=== PATIENT | male | born 1980 | race Caucasian/White ===

== ENCOUNTER 2018-07-06 21:02 | Emergency (ER) | payer BC ==
[2018-07-06 22:03] LABS: ABSOLUTE EOSINOPHILS # (AUTO) 0.1 10^3/uL (0.0-0.6); ABSOLUTE LYMPHOCYTES (AUTO) 2.5 10^3/uL (0.5-4.7); ABSOLUTE MONOCYTES (AUTO) 0.3 10^3/uL (0.1-1.4); ABSOLUTE NEUT (AUTO) 5.7 10^3/uL (1.7-8.2); BASOPHILS % (AUTO) 0.5 % (0-2); EOSINOPHILS % (AUTO) 0.8 % (0-6); HEMATOCRIT 38.5 % (37.9-51.0); HEMOGLOBIN 13.2 g/dL (13.5-17.0); LYMPHOCYTES % (AUTO) 29.4 % (13-45); MEAN CORPUSCULAR HGB CONC 34.3 g/dL (32.0-36.0); MEAN CORPUSCULAR VOLUME 87 fl (80-97); MONOCYTES % (AUTO) 3.8 % (3-13); PLATELET COUNT 276 10^3/uL (150-450); RED CELL DISTRIBUTION WIDTH 14.1 % (11.5-14.0); SEGMENTED NEUTROPHILS % (AUTO) 65.5 % (42-78); TOTAL CELLS COUNTED % (AUTO) 100 %; WHITE BLOOD COUNT 8.6 10^3/uL (4.0-10.5)
[2018-07-06 22:08] LABS: APPEARANCE,URINE CLEAR; BILIRUBIN,URINE NEGATIVE (NEGATIVE); COLOR,URINE STRAW; GLUCOSE, URINE NEGATIVE (NEGATIVE); KETONES,URINE NEGATIVE (NEGATIVE); LEUKOCYTE ESTERASE,URINE NEGATIVE (NEGATIVE); NITRITE,URINE NEGATIVE (NEGATIVE); PROTEIN,URINE NEGATIVE (NEGATIVE); URINE SPECIFIC GRAVITY 1.009; UROBILINOGEN,URINE NEGATIVE mg/dL (<2.0)
[2018-07-06 22:12] LABS: ACETAMINOPHEN < 10 ug/mL (10-30); ALANINE AMINOTRANSFERASE 42 U/L (21-72); ALBUMIN 3.8 g/dL (3.5-5.0); ALCOHOL 112 mg/dL (NONE DETECTED); ALKALINE PHOSPHATASE 93 U/L (38-126); ANION GAP 13 (5-19); ASPARTATE AMINO TRANSFERASE 28 U/L (17-59); BILIRUBIN,DIRECT 0.4 mg/dL (0.0-0.4); BILIRUBIN,TOTAL 0.4 mg/dL (0.2-1.3); BLOOD UREA NITROGEN 13 mg/dL (7-20); CALCIUM 9.4 mg/dL (8.4-10.2); CARBON DIOXIDE 23 mmol/L (22-30); CHLORIDE 107 mmol/L (98-107); GLUCOSE 92 mg/dL (75-110); POTASSIUM 3.6 mmol/L (3.6-5.0); SODIUM 142.5 mmol/L (137-145); TOTAL PROTEIN 6.8 g/dL (6.3-8.2)
[2018-07-06 22:13] LABS: SALICYLATE < 1.0 mg/dL (2.0-20.0)
[2018-07-06 22:21] LABS: URINE AMPHETAMINES SCREEN NEGATIVE; URINE BARBITURATES SCREEN NEGATIVE; URINE BENZODIAZEPINES SCREEN NEGATIVE; URINE COCAINE SCREEN NEGATIVE; URINE MARIJUANA (THC) SCREEN UNCONFIRMED POSITIVE; URINE METHADONE SCREEN NEGATIVE; URINE PHENCYCLIDINE SCREEN NEGATIVE
[2018-07-06] MEDS ORDERED: IBUPROFEN 600 MG TABLET PO ONE (23:00)
--- NOTE | 2018-07-06 23:00 | ER Document Report ---
ED General - General Chief Complaint: Psych Problem Stated Complaint: IVC WITH PAPERS Time Seen by Provider: 07/06/18 22:05 Notes: Patient is a 40-year-old male that presents to the emergency department for chief complaint of back pain, and came by IVC paperwork. Patient states that "someone filled out paperwork, because they felt I needed my checkup." Patient at this time denies any suicidal or homicidal ideations. According to his IVC paperwork, he apparently was argumentative, and combative at times and aggressive behavior, that was concerning to family members. Patient denies any of this at this time. He states he was recently in the hospital about a week ago, and reports being compliant with his medications. He denies any delusions, hallucinations, visual or auditory. He is complaining of low back pain, which she states he injured it a few weeks ago fishing, describes as a low back aching, denies any radiation to the limbs. Denies any numbness, weakness or tingling, denies any saddle paresthesias or anesthesias. Denies any loss of bowel or bladder function or urinary retention. Past Medical History: Anxiety, Crohn's disease Past Surgical History: Surgery for Crohn's Social History: Admits to social alcohol use, admits to smoking cigarettes admits to marijuana use. Family History: Reviewed and noncontributory for presenting illness Allergies: Reviewed, see documented allergy list. REVIEW OF SYSTEMS: Other than noted above, the 12 point review of systems was reviewed with the patient and were negative, all pertinent findings are included in the HPI. PHYSICAL EXAMINATION: Vital signs reviewed, nursing noted reviewed. GENERAL: Well-appearing, well-nourished and in no acute distress. HEAD: Atraumatic, normocephalic. EYES: Eyes appear normal, extraocular movements intact, sclera anicteric, conjun ctiva are normal. ENT: nares patent, oropharynx clear without exudates. Moist mucous membranes. NECK: Normal range of motion, supple without lymphadenopathy LUNGS: Breath sounds clear to auscultation bilaterally and equal. No wheezes rales or rhonchi. HEART: Heart rate tachycardic, regular rhythm. ABDOMEN: Soft, nontender, normoactive bowel sounds. No rebound, guarding, or rigidity. No masses appreciated. EXTREMITIES: Nontender, good range of motion, no pitting or edema. Back: Mild paraspinal tenderness on the left side compared to the right. No midline tenderness step-off or deformity. NEUROLOGICAL: No focal neurological deficits. Moves all extremities spontaneously Motor and sensory grossly intact on exam. PSYCH: Normal mood, normal affect. SKIN: Warm, Dry, normal turgor, no rashes or lesions noted on exposed skin TRAVEL OUTSIDE OF THE [place] IN LAST 30 DAYS: No - Related Data Allergies/Adverse Reactions: No Known Allergies Allergy (Verified 06/27/18 09:16) Past Medical History - Social History Smoking Status: Current Every Day Smoker Family History: Reviewed & Not Pertinent Renal/ Medical History: Denies: Hx Peritoneal Dialysis GI Medical History: Reports: Hx Crohn's Disease Psychiatric Medical History: Reports: Hx Bipolar Disorder, Hx Schizophrenia Past Surgical History: Reports: Hx Abdominal Surgery - Immunizations Hx Diphtheria, Pertussis, Tetanus Vaccination: No Physical Exam - Vital signs Vitals: Temp Pulse Resp BP Pulse Ox 98.2 F 128 H 16 137/82 H 98 07/06/18 21:24 07/06/18 21:24 07/06/18 21:24 07/06/18 21:24 07/06/18 21:24 Course - Re-evaluation Re-evalutation: Patient seen and examined, vital signs reviewed. Medical screening testing was ordered including bloodwork, EKG, and toxicology. Results of testing were reviewed. Testing demonstrated positive EtOH, alcohol level 112, otherwise unremarkable workup, tox positive for marijuana. Patient has been stable from a hemodynamic standpoint. At this point I feel that the patient is medically cleared and can be further evaluated from a psychiatric standpoint for final disposition from the emergency department. Patient updated on plan of care. Laboratory 07/06/18 07/06/18 07/06/18 21:33 21:33 21:33 WBC 8.6 RBC 4.40 Hgb 13.2 L Hct 38.5 MCV 87 MCH 30.0 MCHC 34.3 RDW 14.1 H Plt Count 276 Seg Neutrophils % 65.5 Lymphocytes % 29.4 Monocytes % 3.8 Eosinophils % 0.8 Basophils % 0.5 Absolute Neutrophils 5.7 Absolute Lymphocytes 2.5 Absolute Monocytes 0.3 Absolute Eosinophils 0.1 Absolute Basophils 0.0 Sodium 142.5 Potassium 3.6 Chloride 107 Carbon Dioxide 23 Anion Gap 13 BUN 13 Creatinine 0.95 Est GFR ( Amer) > 60 Est GFR (Non-Af Amer) > 60 Glucose 92 Calcium 9.4 Total Bilirubin 0.4 Direct Bilirubin 0.4 Neonat Total Bilirubin Not Reportable Neonat Direct Bilirubin Not Reportable Neonat Indirect Bili Not Reportable AST 28 ALT 42 Alkaline Phosphatase 93 Total Protein 6.8 Albumin 3.8 Urine Color STRAW Urine Appearance CLEAR Urine pH 6.0 Ur Specific [place] 1.009 Urine Protein NEGATIVE Urine Glucose (UA) NEGATIVE Urine Ketones NEGATIVE Urine Blood NEGATIVE Urine Nitrite NEGATIVE Urine Bilirubin NEGATIVE Urine Urobilinogen NEGATIVE Ur Leukocyte Esterase NEGATIVE Urine WBC (Auto) 0 U Hyaline Cast (Auto) 2 Squamous Epi Cells Auto <1 Urine Mucus (Auto) OCC Urine Ascorbic Acid NEGATIVE Salicylates < 1.0 L Urine Opiates Screen Urine Methadone Screen Acetaminophen < 10 L Ur Barbiturates Screen Ur Phencyclidine Scrn Ur Amphetamines Screen U Benzodiazepines Scrn Urine Cocaine Screen U Marijuana (THC) Screen Serum Alcohol 112 07/06/18 21:33 WBC RBC Hgb Hct MCV MCH MCHC RDW Plt Count Seg Neutrophils % Lymphocytes % Monocytes % Eosinophils % Basophils % Absolute Neutrophils Absolute Lymphocytes Absolute Monocytes Absolute Eosinophils Absolute Basophils Sodium Potassium Chloride Carbon Dioxide Anion Gap BUN Creatinine Est GFR ( Amer) Est GFR (Non-Af Amer) Glucose Calcium Total Bilirubin Direct Bilirubin Neonat Total Bilirubin Neonat Direct Bilirubin Neonat Indirect Bili AST ALT Alkaline Phosphatase Total Protein Albumin Urine Color Urine Appearance Urine pH Ur Specific [place] Urine Protein Urine Glucose (UA) Urine Ketones Urine Blood Urine Nitrite Urine Bilirubin Urine Urobilinogen Ur Leukocyte Esterase Urine WBC (Auto) U Hyaline Cast (Auto) Squamous Epi Cells Auto Urine Mucus (Auto) Urine Ascorbic Acid Salicylates Urine Opiates Screen NEGATIVE Urine Methadone Screen NEGATIVE Acetaminophen Ur Barbiturates Screen NEGATIVE Ur Phencyclidine Scrn NEGATIVE Ur Amphetamines Screen NEGATIVE U Benzodiazepines Scrn NEGATIVE Urine Cocaine Screen NEGATIVE U Marijuana (THC) Screen UNCONFIRMED POSITIVE Serum Alcohol - Vital Signs Vital signs: Temp Pulse Resp BP Pulse Ox 98.2 F 128 H 16 137/82 H 98 07/06/18 21:24 07/06/18 21:24 07/06/18 21:24 07/06/18 21:24 07/06/18 21:24 - Laboratory Result Diagrams: 07/06/18 21:33 07/06/18 21:33 Laboratory results interpreted by me: 07/06/18 07/06/18 21:33 21:33 Hgb 13.2 L RDW 14.1 H Salicylates < 1.0 L Acetaminophen < 10 L - EKG Interpretation by Me Additional EKG results interpreted by me: EKG demonstrates sinus tachycardia with a ventricular rate of 115 bpm, normal axis, QTC 487 ms, no evidence of acute ischemia in this EKG, no prior for comparison at this time. Discharge - Discharge Clinical Impression: Anxiety Back pain Qualifiers: Back pain location: low back pain Chronicity: unspecified Back pain laterality: left Sciatica presence: without sciatica Qualified Code(s): M54.5 - Low back pain Alcohol intoxication Qualifiers: Complication of substance-induced condition: uncomplicated Qualified Code(s): F10.920 - Alcohol use, unspecified with intoxication, uncomplicated Condition: Stable Disposition: PSYCH HOSP/UNIT
[2018-07-07] MEDS ORDERED: IBUPROFEN 600 MG TABLET PO ONE (06:14)
--- NOTE | 2018-07-07 07:23 | EKG REPORT ---
SEVERITY:- BORDERLINE ECG - SINUS TACHYCARDIA BORDERLINE T ABNORMALITIES, INFERIOR LEADS BORDERLINE PROLONGED QT INTERVAL : Confirmed by: Ritchie Lowry MD 07-Jul-2018 07:22:47
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
[2018-07-07 14:01] VITALS: BP 152/88
== END 2018-07-07 14:09 ==
LOC: ER 21:02
DX: F41.9 Anxiety disorder, unspecified (principal); M54.5 Low back pain; F10.920 Alcohol use, unspecified with intoxication, uncomplicated; Y90.5 Blood alcohol level of 100-119 mg/100 ml; K50.90 Crohn's disease, unspecified, without complications; F17.210 Nicotine dependence, cigarettes, uncomplicated
CPT/HCPCS: 36415; 80053; 80307; 81001; 85025; 93005; 93010; 99285

== ENCOUNTER 2018-08-01 16:07 | Emergency (ER) | payer BC ==
[2018-08-01] MEDS ORDERED: LORAZEPAM INJ 2 MG/1 ML VIAL IM ONE (16:15)
[2018-08-01] MEDS ORDERED: DIPHENHYDRAMINE HCL 50 MG/ML VIAL IM ONE (16:15)
[2018-08-01] MEDS ORDERED: HALOPERIDOL LACTATE INJ 5 MG/1 ML VIAL IM ONE (16:15)
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
[2018-08-01 16:48] LABS: ABSOLUTE LYMPHOCYTES (AUTO) 0.9 10^3/uL (0.5-4.7); ABSOLUTE MONOCYTES (AUTO) 0.2 10^3/uL (0.1-1.4); ABSOLUTE NEUT (AUTO) 7.8 10^3/uL (1.7-8.2); BASOPHILS % (AUTO) 0.2 % (0-2); HEMATOCRIT 38.8 % (37.9-51.0); HEMOGLOBIN 12.9 g/dL (13.5-17.0); LYMPHOCYTES % (AUTO) 10.3 % (13-45); MEAN CORPUSCULAR HEMOGLOBIN 29.4 pg (27.0-33.4); MEAN CORPUSCULAR HGB CONC 33.2 g/dL (32.0-36.0); MEAN CORPUSCULAR VOLUME 89 fl (80-97); MONOCYTES % (AUTO) 2.7 % (3-13); PLATELET COUNT 259 10^3/uL (150-450); RED BLOOD COUNT 4.38 10^6/uL (4.35-5.55); RED CELL DISTRIBUTION WIDTH 14.6 % (11.5-14.0); SEGMENTED NEUTROPHILS % (AUTO) 86.8 % (42-78); TOTAL CELLS COUNTED % (AUTO) 100 %; WHITE BLOOD COUNT 8.9 10^3/uL (4.0-10.5)
[2018-08-01 17:05] LABS: ALANINE AMINOTRANSFERASE 31 U/L (21-72); ALBUMIN 4.2 g/dL (3.5-5.0); ALKALINE PHOSPHATASE 105 U/L (38-126); ANION GAP 11 (5-19); ASPARTATE AMINO TRANSFERASE 24 U/L (17-59); BILIRUBIN,DIRECT 0.2 mg/dL (0.0-0.4); BILIRUBIN,TOTAL 0.5 mg/dL (0.2-1.3); BLOOD UREA NITROGEN 20 mg/dL (7-20); CALCIUM 9.6 mg/dL (8.4-10.2); CARBON DIOXIDE 27 mmol/L (22-30); CHLORIDE 107 mmol/L (98-107); GLUCOSE 113 mg/dL (75-110); POTASSIUM 4.1 mmol/L (3.6-5.0); SODIUM 144.7 mmol/L (137-145); TOTAL PROTEIN 7.3 g/dL (6.3-8.2)
[2018-08-01 17:08] LABS: ACETAMINOPHEN < 10 ug/mL (10-30); ALCOHOL < 10 mg/dL (NONE DETECTED); SALICYLATE < 1.0 mg/dL (2.0-20.0)
[2018-08-01 17:09] LABS: APPEARANCE,URINE SLIGHTLY-CLOUDY; BILIRUBIN,URINE NEGATIVE (NEGATIVE); GLUCOSE, URINE NEGATIVE (NEGATIVE); KETONES,URINE NEGATIVE (NEGATIVE); LEUKOCYTE ESTERASE,URINE NEGATIVE (NEGATIVE); NITRITE,URINE NEGATIVE (NEGATIVE); PROTEIN,URINE NEGATIVE (NEGATIVE); URINE SPECIFIC GRAVITY 1.028; UROBILINOGEN,URINE NEGATIVE mg/dL (<2.0)
[2018-08-01 17:10] LABS: COLOR,URINE YELLOW
[2018-08-01 17:26] LABS: URINE AMPHETAMINES SCREEN NEGATIVE; URINE BARBITURATES SCREEN NEGATIVE; URINE BENZODIAZEPINES SCREEN NEGATIVE; URINE COCAINE SCREEN NEGATIVE; URINE MARIJUANA (THC) SCREEN UNCONFIRMED POSITIVE; URINE METHADONE SCREEN NEGATIVE; URINE PHENCYCLIDINE SCREEN NEGATIVE
--- NOTE | 2018-08-02 08:45 | EKG REPORT ---
SEVERITY:- ABNORMAL ECG - SINUS RHYTHM BORDERLINE T ABNORMALITIES, INFERIOR LEADS PROLONGED QT INTERVAL : Confirmed by: Ritchie Lowry MD 02-Aug-2018 08:44:12
--- NOTE | 2018-08-02 10:16 | ER Document Report ---
Doctor's Note Notes: 08/02/18 10:15 Rounds: Chart reviewed and patient interviewed. Patient is very calm and cooperative and pleasant this morning. He does seem to be a bit hyper. 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 Patient denies any suicidal intent or homicidal ideation. Was brought into the emergency department last night yelling and screaming and uncontrollable. He received an injection of Haldol 5 mg, Benadryl 50 mg, Ativan 2 mg, all I am. Apparently slept well and this morning is much calmer. Patient appears to be medically stable for transfer or discharge. Jamie Jane MD
[2018-08-02] MEDS ORDERED: OLANZAPINE 5 MG TABLET PO ONE (10:28)
[2018-08-02] MEDS: BENZTROPINE MESYLATE 1 MG TABLET PO SCH (10:42)
[2018-08-02] MEDS: OLANZAPINE 5 MG TABLET PO SCH (17:12)
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
--- NOTE | 2018-08-03 09:20 | ER Document Report ---
Doctor's Note Notes: 08/03/18 09:19 Rounds: Chart reviewed and patient interviewed. Patient being evaluated and treated for an acute psychosis, bipolar type. Seems to be doing much better and says he feels much better. Has been able to shower now feels better. Patient has a very large pile of papers that he has been handwriting notes and to keep track of his stay in our department. I recall this patient previously doing the same, writing profuse and written notes. Patient is currently on Zyprexa. No new labs to review. Previous labs unremarkable except for positive marijuana. Vital signs have been normal this morning. Patient appears to be medically stable for transfer or discharge. Current plan is for placement of the patient. Jamie Jane MD
[2018-08-03] MEDS: BENZTROPINE MESYLATE 1 MG TABLET PO SCH (10:42)
[2018-08-03] MEDS: OLANZAPINE 5 MG TABLET PO SCH ×2 (10:42→17:02)
[2018-08-04 03:29] VITALS: BP 146/100
== END 2018-08-04 03:10 ==
LOC: ER 16:07
DX: F23 Brief psychotic disorder (principal); F17.200 Nicotine dependence, unspecified, uncomplicated; F12.99 Cannabis use, unspecified with unspecified cannabis-induced disorder; F31.9 Bipolar disorder, unspecified; F10.20 Alcohol dependence, uncomplicated
CPT/HCPCS: 36415; 80053; 80307; 81001; 85025; 93005; 93010; 99285

== ENCOUNTER 2018-08-19 11:38 | Emergency (ER) | payer BC ==
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
[2018-08-19 12:51] LABS: ABSOLUTE EOSINOPHILS # (AUTO) 0.1 10^3/uL (0.0-0.6); ABSOLUTE LYMPHOCYTES (AUTO) 2.6 10^3/uL (0.5-4.7); ABSOLUTE MONOCYTES (AUTO) 0.8 10^3/uL (0.1-1.4); ABSOLUTE NEUT (AUTO) 6.9 10^3/uL (1.7-8.2); BASOPHILS % (AUTO) 0.3 % (0-2); EOSINOPHILS % (AUTO) 1.3 % (0-6); HEMATOCRIT 40.3 % (37.9-51.0); HEMOGLOBIN 13.6 g/dL (13.5-17.0); LYMPHOCYTES % (AUTO) 24.6 % (13-45); MEAN CORPUSCULAR HEMOGLOBIN 29.8 pg (27.0-33.4); MEAN CORPUSCULAR HGB CONC 33.8 g/dL (32.0-36.0); MEAN CORPUSCULAR VOLUME 88 fl (80-97); MONOCYTES % (AUTO) 7.3 % (3-13); PLATELET COUNT 289 10^3/uL (150-450); RED BLOOD COUNT 4.56 10^6/uL (4.35-5.55); RED CELL DISTRIBUTION WIDTH 14.2 % (11.5-14.0); SEGMENTED NEUTROPHILS % (AUTO) 66.5 % (42-78); TOTAL CELLS COUNTED % (AUTO) 100 %; WHITE BLOOD COUNT 10.4 10^3/uL (4.0-10.5)
--- NOTE | 2018-08-19 12:52 | PSYCHOLOGICAL NOTE ---
Psych Note - Psych Note Date seen by psych provider: 08/19/18 Time seen by psych provider: 13:30 - 9534 Psych Note: Reason for Consult: IVC Consent permissions: patient refuses IVC petitioner, Donnell Corcoran; patient's father [phone] Patient denies all allegations and states that he did not tell his mother that the next time she would see him he had been a cough and he reports that he stated "I told her when I to go to my head stone and picks on it because that is what they are doing to me now anyway." Patient identifies being under stress with his family and confirms he has not been taking his medications because "I am following my orthopedic surgeon" as patient identifies his psychiatric medications as well as his legs and feet. He reports that he was drinking last night and thinks that his last drink was approximately midnight however after that states he drank "a lot of water." He reports that his bar has a breathalyzer on the wall and that he tests his breath before leaving and will only drive if he is at 0.04; "if I met 0.[address] they told me if I get caught driving under the influence again I will go to assisted for 1 year so I will not do it." He reports that he goes to the bar because "they treat me better than my own family." Patient is alert and orientated to person, place, time and circumstance. Mood is euthymic with congruent affect. Patient denies suicidal and homicidal ideation. Clinician notes patient is not demonstrating any behaviors feng and/or bipolar (ie calmly laying back in bed, no psychomotor agitation, normal conversational speech). Delusions are absent behaviors congruent with an intact reality based presentation i.e. organized and linear thought process. Eye contact is well-maintained. Conversational speech is within normal rate, tone and prosody. Intellectual abilities appear to be within the average range. Attention and concentration are currently good. Insight, judgment, impulse control are fair. Chart Review conducted: Patient was seen from 06/26-/06/28 for stabilization of manic-like behaviors. Clinician notes patient's family had reached out to the behavioral health team only 1 week after discharge for continued assistance and direction as the patient was non-compliant on his medications and deteriorating again since discharge. Patient was brought back in on 07/06- 07/07 with similar etiology and was sent inpatient psychiatric treatment to [facility]. Patient was seen again on 08/01-08/03 with similar etiology was was sent inpatient psychiatric treatment to [facility]. Clinician attempted contact to patient's father, Donnell; IVC petitioner. Left message. Clinician spoke with [employer] worker, Lynda. She reports that she assisted the family and filling out an IVC because she personally did not have enough information to validate an involuntary commitment petition. They are involved at the request of the patient's father. She reports she did explain to the patient that the patient is primary substance abuse and involuntary commitment cannot be used for those concerns. Diagnosis: 303.90 (F10.20) Alcohol Use Disorder; severe 296.80 (F31.9) Unspecified Bipolar and Related Disorder 292.9 (F12.99) Unspecified Cannabis Related Disorder Impression/plan: Patient is recommended for rescind of IVC and is cleared of acute psychiatric services. Patient does not have any signs of symptoms of feng and/or bipolar (ie calmly laying back in bed, no psychomotor agitation, normal conversational speech, organized and linear thought process, Conversational speech is within normal rate, tone and prosody, and his attention and concentration are currently good). Patient's reported behaviors last night and dip brazier are more consistent with being under the influence and patient's toxicology report supports this with a positive for cocaine and THC. Patient received psychoeducation on the importance of taking medications as directed and was highly encouraged to follow thought with substance abuse treatment. Dr. Carrizales was consulted on the care and management of this patient; attending physician is in agreement with recommendations and disposition.
[2018-08-19 13:06] LABS: APPEARANCE,URINE SLIGHTLY-CLOUDY; BILIRUBIN,URINE NEGATIVE (NEGATIVE); CALCIUM OXALATE CRYSTALS,URINE FEW /HPF; COLOR,URINE YELLOW; GLUCOSE, URINE NEGATIVE (NEGATIVE); KETONES,URINE NEGATIVE (NEGATIVE); LEUKOCYTE ESTERASE,URINE NEGATIVE (NEGATIVE); NITRITE,URINE NEGATIVE (NEGATIVE); PROTEIN,URINE NEGATIVE (NEGATIVE); URINE SPECIFIC GRAVITY 1.025; UROBILINOGEN,URINE NEGATIVE mg/dL (<2.0)
[2018-08-19 13:11] LABS: ALANINE AMINOTRANSFERASE 31 U/L (21-72); ALBUMIN 4.1 g/dL (3.5-5.0); ALKALINE PHOSPHATASE 89 U/L (38-126); ANION GAP 12 (5-19); ASPARTATE AMINO TRANSFERASE 28 U/L (17-59); BILIRUBIN,DIRECT 0.2 mg/dL (0.0-0.4); BILIRUBIN,TOTAL 0.4 mg/dL (0.2-1.3); BLOOD UREA NITROGEN 15 mg/dL (7-20); CALCIUM 9.5 mg/dL (8.4-10.2); CARBON DIOXIDE 29 mmol/L (22-30); CHLORIDE 101 mmol/L (98-107); GLUCOSE 90 mg/dL (75-110); POTASSIUM 3.8 mmol/L (3.6-5.0); SODIUM 141.5 mmol/L (137-145)
[2018-08-19 13:14] LABS: ACETAMINOPHEN < 10 ug/mL (10-30); ALCOHOL < 10 mg/dL (NONE DETECTED); SALICYLATE < 1.0 mg/dL (2.0-20.0)
[2018-08-19 13:30] LABS: URINE AMPHETAMINES SCREEN NEGATIVE; URINE BARBITURATES SCREEN NEGATIVE; URINE BENZODIAZEPINES SCREEN NEGATIVE; URINE COCAINE SCREEN UNCONFIRMED POSITIVE; URINE MARIJUANA (THC) SCREEN UNCONFIRMED POSITIVE; URINE METHADONE SCREEN NEGATIVE; URINE PHENCYCLIDINE SCREEN NEGATIVE
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
--- NOTE | 2018-08-19 13:55 | EKG REPORT ---
SEVERITY:- BORDERLINE ECG - SINUS RHYTHM BORDERLINE T ABNORMALITIES, INFERIOR LEADS : Confirmed by: Ritchie Lowry MD 19-Aug-2018 13:55:14
[2018-08-19] MEDS ORDERED: BISMUTH SUBSALICYLATE 262 MG TAB.CHEW PO ONE (16:18)
[2018-08-19] MEDS ORDERED: DOXYCYCLINE HYCLATE 100 MG TABLET PO ONE (17:12)
[2018-08-19 17:40] VITALS: BP 127/64
== END 2018-08-19 17:39 | disposition home or self-care (01) ==
LOC: ER 11:38
DX: F10.20 Alcohol dependence, uncomplicated (principal); F31.9 Bipolar disorder, unspecified; F12.99 Cannabis use, unspecified with unspecified cannabis-induced disorder; F17.200 Nicotine dependence, unspecified, uncomplicated; R45.851 Suicidal ideations
CPT/HCPCS: 36415; 80053; 80307; 81001; 85025; 93005; 93010; 99285

== ENCOUNTER 2019-01-16 10:30 | Inpatient (IN) | payer BC ==
[2019-01-16] MEDS ORDERED: PROPOFOL INJ 200 MG/20 ML VIAL IV ONE (10:39)
[2019-01-16] MEDS ORDERED: PROPOFOL 1,000 MG/100 ML INFUS..BTL IV ONE (10:40)
[2019-01-16] MEDS ORDERED: MIDAZOLAM HCL 0 MG/0 ML RTUINJ ONE (10:46)
[2019-01-16] MEDS ORDERED: NORMAL SALINE 1000 ML 1,000 ML IV ONE ×2 (10:53→12:55)
[2019-01-16] MEDS: PROPOFOL 1,000 MG/100 ML INFUS..BTL IV PRN ×3 (11:00→20:08)
[2019-01-16] MEDS ORDERED: FENTANYL CITRATE INJ/PF 100 MCG/2 ML AMPUL IV ONE (11:08)
[2019-01-16] MEDS ORDERED: FENTANYL CITRATE INJ/PF 100 MCG/2 ML AMPUL IV PRN (11:09)
[2019-01-16] MEDS ORDERED: KETAMINE HCL INJ 500 MG/10 ML VIAL IV ONE (11:10)
[2019-01-16] MEDS ORDERED: SUCCINYLCHOLINE CHLORIDE INJ 200 MG/10 ML VIAL IV ONE (11:10)
[2019-01-16 11:21] LABS: INTERNATIONAL RATION (INR) 0.97; PROTHROMBIN TIME 12.9 SEC (11.4-15.4)
[2019-01-16 11:26] LABS: ABSOLUTE EOSINOPHILS # (AUTO) 0.1 10^3/uL (0.0-0.6); ABSOLUTE MONOCYTES (AUTO) 0.4 10^3/uL (0.1-1.4); ABSOLUTE NEUT (AUTO) 5.1 10^3/uL (1.7-8.2); BASOPHILS % (AUTO) 0.6 % (0-2); EOSINOPHILS % (AUTO) 1.6 % (0-6); HEMATOCRIT 39.1 % (37.9-51.0); LYMPHOCYTES % (AUTO) 25.9 % (13-45); MEAN CORPUSCULAR HEMOGLOBIN 29.4 pg (27.0-33.4); MEAN CORPUSCULAR HGB CONC 33.2 g/dL (32.0-36.0); MEAN CORPUSCULAR VOLUME 89 fl (80-97); PLATELET COUNT 220 10^3/uL (150-450); RED BLOOD COUNT 4.41 10^6/uL (4.35-5.55); RED CELL DISTRIBUTION WIDTH 14.6 % (11.5-14.0); SEGMENTED NEUTROPHILS % (AUTO) 66.9 % (42-78); TOTAL CELLS COUNTED % (AUTO) 100 %; WHITE BLOOD COUNT 7.6 10^3/uL (4.0-10.5)
--- NOTE | 2019-01-16 11:26 | RADIOLOGY REPORT (SQ) ---
EXAM DESCRIPTION: CHEST SINGLE VIEW COMPLETED DATE/TIME: 01/16/2019 11:04 am REASON FOR STUDY: verify placement ofn ET and NG tube COMPARISON: 06/26/2018 EXAM PARAMETERS: NUMBER OF VIEWS: One view. TECHNIQUE: Single frontal radiographic view of the chest acquired. RADIATION DOSE: NA LIMITATIONS: None. FINDINGS: LUNGS AND PLEURA: Low lung volumes. Parahilar airspace disease. No pneumothorax. MEDIASTINUM AND HILAR STRUCTURES: No mass. HEART AND VASCULAR STRUCTURES: Normal heart size for technique. BONES: No acute findings. HARDWARE: None in the chest. OTHER: Endotracheal tube tip between thoracic inlet and robbie. Nasogastric tube tip overlying the s tomach. IMPRESSION: Good position of endotracheal and nasogastric tubes. No pneumothorax. TECHNICAL DOCUMENTATION: JOB ID: [id number] [employer]- All Rights Reserved Reading location - IP/workstation name: [email or web address]
--- NOTE | 2019-01-16 11:28 | ER Document Report ---
ED General - General Chief Complaint: Unresponsive Stated Complaint: POSSIBLE OVERDOSE Time Seen by Provider: 01/16/19 10:52 TRAVEL OUTSIDE OF THE [place] IN LAST 30 DAYS: No - Related Data Allergies/Adverse Reactions: No Known Allergies Allergy (Verified 08/19/18 11:43) Home Medications: HCTZ. Depakote. Gabapentin 300 Past Medical History - Social History Smoking Status: Unknown if Ever Smoked Family History: Reviewed & Not Pertinent Patient has suicidal ideation: No - Unknown Patient has homicidal ideation: No Renal/ Medical History: Denies: Hx Peritoneal Dialysis GI Medical History: Reports: Hx Crohn's Disease Psychiatric Medical History: Reports: Hx Bipolar Disorder, Hx Schizophrenia Past Surgical History: Reports: Hx Abdominal Surgery - Immunizations Hx Diphtheria, Pertussis, Tetanus Vaccination: No Course - Laboratory Result Diagrams: 01/16/19 10:31 01/16/19 10:31 Laboratory results interpreted by me: 01/16/19 10:57 POC Glucose 126 H Discharge - Discharge Disposition: ADMITTED INPATIENT Admitting Provider: dr lisa heard Unit Admitted: ICU
[2019-01-16 11:32] LABS: ALBUMIN 3.6 g/dL (3.5-5.0); ALKALINE PHOSPHATASE 69 U/L (38-126); ANION GAP 10 (5-19); ASPARTATE AMINO TRANSFERASE 14 U/L (17-59); BILIRUBIN,TOTAL 0.2 mg/dL (0.2-1.3); BLOOD UREA NITROGEN 10 mg/dL (7-20); CALCIUM 8.3 mg/dL (8.4-10.2); CARBON DIOXIDE 26 mmol/L (22-30); CHLORIDE 107 mmol/L (98-107); GLUCOSE 122 mg/dL (75-110); POTASSIUM 3.2 mmol/L (3.6-5.0); TOTAL PROTEIN 6.3 g/dL (6.3-8.2)
[2019-01-16 11:33] LABS: APPEARANCE,URINE CLEAR; BILIRUBIN,URINE NEGATIVE (NEGATIVE); COLOR,URINE STRAW; GLUCOSE, URINE NEGATIVE (NEGATIVE); KETONES,URINE NEGATIVE (NEGATIVE); PROTEIN,URINE NEGATIVE (NEGATIVE); URINE SPECIFIC GRAVITY 1.008; UROBILINOGEN,URINE NEGATIVE mg/dL (<2.0)
[2019-01-16 11:57] LABS: URINE AMPHETAMINES SCREEN NEGATIVE; URINE BARBITURATES SCREEN NEGATIVE; URINE BENZODIAZEPINES SCREEN NEGATIVE; URINE COCAINE SCREEN NEGATIVE; URINE MARIJUANA (THC) SCREEN UNCONFIRMED POSITIVE; URINE METHADONE SCREEN NEGATIVE; URINE PHENCYCLIDINE SCREEN NEGATIVE
[2019-01-16 12:22] LABS: ALCOHOL 216 mg/dL (NONE DETECTED)
[2019-01-16 12:24] LABS: ACETAMINOPHEN < 10 ug/mL (10-30)
[2019-01-16] MEDS ORDERED: FENTANYL CITRATE/PF 600 MCG/60 ML BAG IV PRN (12:44)
[2019-01-16] MEDS ORDERED: RINGERS SOLUTION,LACTATED 1,000 ML IV ONE (12:57)
[2019-01-16] MEDS ORDERED: IPRATROPIUM/ALBUTEROL 0.5-2.5 MG/3 ML AMPUL NEB PRN (14:28)
[2019-01-16] MEDS ORDERED: DEXTROSE 40% GEL 15 GM TUBE PO PRN ×2 (14:33)
[2019-01-16] MEDS ORDERED: DEXTROSE 50%-WATER 25 GM/50 ML DISP.SYRIN IV PRN ×2 (14:33)
[2019-01-16] MEDS ORDERED: GLUCAGON,HUMAN RECOMB 1 MG INJ IM PRN (14:33)
[2019-01-16] MEDS ORDERED: ONDANSETRON HCL INJ/PF 4 MG/2 ML SDV IV PRN (14:34)
[2019-01-16] MEDS ORDERED: INFLUENZA QUAD (6MOS+) 2019-20 VAC 0.5 ML SYR IM ONE (14:53)
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
[2019-01-16] MEDS ORDERED: SUCCINYLCHOLINE CHLORIDE INJ 200 MG/10 ML VIAL ONE (15:26)
[2019-01-16] MEDS: ENOXAPARIN SODIUM INJ 40 MG/0.4 ML DISP.SYRIN SUBCUT SCH (16:18)
[2019-01-16] MEDS: RINGERS SOLUTION,LACTATED 1,000 ML IV PRN (16:18)
[2019-01-16] MEDS: INSULIN REG, HUMAN 100 UNIT/ML 3 ML VIAL (PYX) SUBCUT SCH (17:25)
--- NOTE | 2019-01-16 18:14 | EKG REPORT ---
SEVERITY:- NORMAL ECG - SINUS RHYTHM : Confirmed by: Ritchie Lowry MD 16-Jan-2019 18:13:48
[2019-01-16] MEDS: FAMOTIDINE 20 MG TABLET PO SCH (21:52)
[2019-01-17] MEDS: INSULIN REG, HUMAN 100 UNIT/ML 3 ML VIAL (PYX) SUBCUT SCH ×4 (00:03→17:25)
[2019-01-17] MEDS: PROPOFOL 1,000 MG/100 ML INFUS..BTL IV PRN ×5 (00:04→12:33)
[2019-01-17] MEDS: RINGERS SOLUTION,LACTATED 1,000 ML IV PRN ×3 (01:35→21:19)
[2019-01-17 04:19] LABS: HEMATOCRIT 33.6 % (37.9-51.0); HEMOGLOBIN 11.4 g/dL (13.5-17.0); MEAN CORPUSCULAR HEMOGLOBIN 29.3 pg (27.0-33.4); MEAN CORPUSCULAR HGB CONC 33.9 g/dL (32.0-36.0); MEAN CORPUSCULAR VOLUME 87 fl (80-97); PLATELET COUNT 195 10^3/uL (150-450); RED BLOOD COUNT 3.87 10^6/uL (4.35-5.55); WHITE BLOOD COUNT 9.4 10^3/uL (4.0-10.5)
[2019-01-17 04:36] LABS: ARTERIAL BLOOD BASE EXCESS 1.2 mmol/L; ARTERIAL BLOOD H2CO3 1.06 mmol/L (1.05-1.35); ARTERIAL BLOOD HCO3 24.7 mmol/L (20-24); ARTERIAL BLOOD O2 SATURATION 98.2 % (94-98); ARTERIAL BLOOD PCO2 35.1 mmHg (35-45); ARTERIAL BLOOD PH 7.47 (7.35-7.45); ARTERIAL BLOOD PO2 106.5 mmHg (80-100); ARTERIAL BLOOD TOTAL CO2 25.8 mmol/L (23-27)
[2019-01-17 04:37] LABS: ARTERIAL BLOOD FIO2 30%
[2019-01-17 04:38] LABS: ANION GAP 7 (5-19); BLOOD UREA NITROGEN 9 mg/dL (7-20); CALCIUM 8.1 mg/dL (8.4-10.2); CARBON DIOXIDE 26 mmol/L (22-30); CHLORIDE 113 mmol/L (98-107); GLUCOSE 77 mg/dL (75-110); POTASSIUM 3.7 mmol/L (3.6-5.0)
--- NOTE | 2019-01-17 07:59 | RADIOLOGY REPORT (SQ) ---
EXAM DESCRIPTION: CHEST SINGLE VIEW COMPLETED DATE/TIME: 01/17/2019 6:32 am REASON FOR STUDY: resp failure COMPARISON: 01/16/2019. FINDINGS: Single-view chest AP portable semi-upright. Endotracheal and nasogastric tubes appropriate. Slightly improved lung aeration compared to yesterday. No new infiltrates or edema developing. No p neumothorax. TECHNICAL DOCUMENTATION: JOB ID: [id number] Reading location - IP/workstation name: [email or web address]
--- NOTE | 2019-01-17 09:46 | PDOC PROGRESS REPORT ---
Subjective Progress Note for:: 01/17/19 Subjective:: Critical Care Progress Note. Pt remains intubated and sedated. Was agitated at times. Reason For Visit: ACUTE RESPIRATORY FAILURE, DRUG OVERDOSE, Physical Exam Vital Signs: Temp Pulse Resp BP Pulse Ox 100.9 F H 90 15 121/58 L 98 01/17/19 08:00 01/17/19 08:00 01/17/19 08:00 01/17/19 08:00 01/17/19 08:50 Intake & Output 01/16/19 01/17/19 01/18/19 06:59 06:59 05:59 Intake Total 4380 Output Total 1685 420 Balance 2695 -420 Weight 97.5 kg General appearance: PRESENT: no acute distress, well-developed, well-nourished, other - intubated and sedated Respiratory exam: PRESENT: clear to auscultation sakshi, unlabored Cardiovascular exam: PRESENT: RRR GI/Abdominal exam: PRESENT: soft Gentrourinary exam: PRESENT: indwelling catheter Musculoskeletal exam: PRESENT: normal inspection Neurological exam: PRESENT: other - sedated Results Laboratory Results: 01/17/19 03:40 01/17/19 03:40 01/16/19 01/16/19 01/16/19 10:31 10:31 10:52 WBC 7.6 RBC 4.41 Hgb 13.0 L Hct 39.1 MCV 89 MCH 29.4 MCHC 33.2 RDW 14.6 H Plt Count 220 Seg Neutrophils % 66.9 Carbonic Acid HCO3/H2CO3 Ratio ABG pH ABG pCO2 ABG pO2 ABG HCO3 ABG O2 Saturation ABG Base Excess FiO2 Sodium 143.0 Potassium 3.2 L Chloride 107 Carbon Dioxide 26 Anion Gap 10 BUN 10 Creatinine 0.66 Est GFR ( Amer) > 60 Glucose 122 H Lactic Acid Calcium 8.3 L Total Bilirubin 0.2 AST 14 L Alkaline Phosphatase 69 Total Protein 6.3 Albumin 3.6 Triglycerides Urine Color STRAW Urine Appearance CLEAR Urine pH 6.0 Ur Specific [place] 1.008 Urine Protein NEGATIVE Urine Glucose (UA) NEGATIVE Urine Ketones NEGATIVE Urine Blood NEGATIVE 01/16/19 01/16/19 01/17/19 12:52 12:52 03:40 WBC 9.4 RBC 3.87 L Hgb 11.4 L Hct 33.6 L MCV 87 MCH 29.3 MCHC 33.9 RDW 14.0 Plt Count 195 Seg Neutrophils % Carbonic Acid HCO3/H2CO3 Ratio ABG pH ABG pCO2 ABG pO2 ABG HCO3 ABG O2 Saturation ABG Base Excess FiO2 Sodium Potassium Chloride Carbon Dioxide Anion Gap BUN Creatinine Est GFR ( Amer) Glucose Lactic Acid 2.0 Calcium Total Bilirubin AST Alkaline Phosphatase Total Protein Albumin Triglycerides 96 Urine Color Urine Appearance Urine pH Ur Specific [place] Urine Protein Urine Glucose (UA) Urine Ketones Urine Blood 01/17/19 01/17/19 03:40 04:24 WBC RBC Hgb Hct MCV MCH MCHC RDW Plt Count Seg Neutrophils % Carbonic Acid 1.06 HCO3/H2CO3 Ratio 23:1 ABG pH 7.47 H ABG pCO2 35.1 ABG pO2 106.5 H ABG HCO3 24.7 H ABG O2 Saturation 98.2 H ABG Base Excess 1.2 FiO2 30% Sodium 146.3 H Potassium 3.7 Chloride 113 H Carbon Dioxide 26 Anion Gap 7 BUN 9 Creatinine 0.73 Est GFR ( Amer) > 60 Glucose 77 Lactic Acid Calcium 8.1 L Total Bilirubin AST Alkaline Phosphatase Total Protein Albumin Triglycerides Urine Color Urine Appearance Urine pH Ur Specific [place] Urine Protein Urine Glucose (UA) Urine Ketones Urine Blood Assessment & Plan - Diagnosis (1) Acute respiratory failure Qualifiers: Respiratory failure complication: unspecified whether with hypoxia or hypercapnia Qualified Code(s): J96.00 - Acute respiratory failure, unspecified whether with hypoxia or hypercapnia Is this a current diagnosis for this admission?: Yes (2) Drug overdose, intentional Qualifiers: Encounter type: initial encounter Qualified Code(s): T50.902A - Poisoning by unspecified drugs, medicaments and biological substances, intentional self- harm, initial encounter Is this a current diagnosis for this admission?: Yes (3) Suicide attempt Is this a current diagnosis for this admission?: Yes (4) Bipolar disorder Qualifiers: Active/Remission status: currently active Is this a current diagnosis for this admission?: Yes (5) Alcohol abuse Is this a current diagnosis for this admission?: Yes - Time Time Spent with patient: 35 or more minutes Total Critical Time (Minutes): 35 Level of Care: ICU Provider Note Provider Note: Assessment: Critically ill 38 yo man with acute respiratory failure, drug overdose, suicide attempt, bipolar disorder, marijuana use, alcohol abuse. Plan: 1. Respiratory: acute respiratory failure. Vent day 2. SBT when off sedation 2. CV: heart rate and BP acceptable. 3. Psych: drug overdose, suicide attempt, marijuana use, alcohol withdrawal bipolar disorder. Continue sedation with propofol. Will start precedes. Contiue MVI, folic acid, thiamine. Psychiatry eval when pt is extubated 4. ID: febrile overnight. Will start rocephin empirically. Check cultures 5. Nutrition: start tube feeds 6. Endocrine: accuchecks, SSI 7. Prophylaxis: scds,lovenox Critical care time= 35min, excluding procedures
[2019-01-17] MEDS ORDERED: CEFTRIAXONE 1 GM/D5W RTU 1 GM/50 ML RTUPB IV SCH (10:00)
[2019-01-17] MEDS: MULTIVITAMIN TABLET PO SCH (10:37)
[2019-01-17] MEDS: FOLIC ACID 1 MG TABLET PO SCH (10:37)
[2019-01-17] MEDS: FAMOTIDINE 20 MG TABLET PO SCH ×2 (10:37→21:19)
[2019-01-17] MEDS: ENOXAPARIN SODIUM INJ 40 MG/0.4 ML DISP.SYRIN SUBCUT SCH (10:37)
[2019-01-17] MEDS: THIAMINE HCL 100 MG TABLET PO SCH (10:37)
[2019-01-17] MEDS: DEXMEDETOMIDINE IN NS 400 MCG/100 ML RTUPB IV PRN ×4 (11:21→21:47)
[2019-01-17] MEDS: ACETAMINOPHEN 325 MG TABLET NG PRN ×3 (13:09→21:18)
[2019-01-18] MEDS: INSULIN REG, HUMAN 100 UNIT/ML 3 ML VIAL (PYX) SUBCUT SCH ×5 (00:03→23:57)
[2019-01-18] MEDS: DEXMEDETOMIDINE IN NS 400 MCG/100 ML RTUPB IV PRN (00:25)
[2019-01-18] MEDS: PROPOFOL 1,000 MG/100 ML INFUS..BTL IV PRN ×8 (02:12→23:56)
[2019-01-18] MEDS ORDERED: HYDRALAZINE HCL INJ/PF 20 MG/1 ML SDV ONE (02:27)
[2019-01-18] MEDS ORDERED: HYDRALAZINE HCL INJ/PF 20 MG/1 ML SDV IV ONE (02:45)
[2019-01-18 04:19] LABS: HEMATOCRIT 38.3 % (37.9-51.0); HEMOGLOBIN 12.8 g/dL (13.5-17.0); MEAN CORPUSCULAR HEMOGLOBIN 29.1 pg (27.0-33.4); MEAN CORPUSCULAR HGB CONC 33.4 g/dL (32.0-36.0); MEAN CORPUSCULAR VOLUME 87 fl (80-97); PLATELET COUNT 154 10^3/uL (150-450); RED BLOOD COUNT 4.41 10^6/uL (4.35-5.55); WHITE BLOOD COUNT 12.7 10^3/uL (4.0-10.5)
[2019-01-18 04:36] LABS: ANION GAP 8 (5-19); BLOOD UREA NITROGEN 11 mg/dL (7-20); CALCIUM 8.6 mg/dL (8.4-10.2); CARBON DIOXIDE 23 mmol/L (22-30); CHLORIDE 115 mmol/L (98-107); GLUCOSE 108 mg/dL (75-110); POTASSIUM 3.7 mmol/L (3.6-5.0)
[2019-01-18 04:59] LABS: ARTERIAL BLOOD BASE EXCESS 2.8 mmol/L; ARTERIAL BLOOD H2CO3 1.06 mmol/L (1.05-1.35); ARTERIAL BLOOD HCO3 25.9 mmol/L (20-24); ARTERIAL BLOOD O2 SATURATION 97.3 % (94-98); ARTERIAL BLOOD PCO2 35.3 mmHg (35-45); ARTERIAL BLOOD PH 7.48 (7.35-7.45)
[2019-01-18] MEDS: RINGERS SOLUTION,LACTATED 1,000 ML IV PRN ×2 (04:59→17:13)
[2019-01-18 05:01] LABS: ARTERIAL BLOOD FIO2 30%
[2019-01-18] MEDS ORDERED: VANCOMYCIN HCL 0 MG in DEXTROSE 5%-WATER 250 ML IV NR (07:15)
--- NOTE | 2019-01-18 07:59 | PDOC PROGRESS REPORT ---
Subjective Progress Note for:: 01/18/19 Reason For Visit: ACUTE RESPIRATORY FAILURE, DRUG OVERDOSE, Physical Exam Vital Signs: Temp Pulse Resp BP Pulse Ox 97.2 F 81 19 129/71 H 98 01/18/19 05:33 01/17/19 20:00 01/18/19 02:41 01/18/19 02:41 01/18/19 04:12 Intake & Output 01/17/19 01/18/19 01/19/19 07:59 06:59 06:59 Intake Total Output Total Balance Weight General appearance: PRESENT: no acute distress, well-developed, well-nourished, other - intubated, sedated Head exam: PRESENT: atraumatic, normocephalic Respiratory exam: PRESENT: decreased breath sounds, unlabored Cardiovascular exam: PRESENT: RRR GI/Abdominal exam: PRESENT: soft Gentrourinary exam: PRESENT: indwelling catheter Neurological exam: PRESENT: other - sedated Skin exam: PRESENT: vesicles Results Laboratory Results: 01/18/19 03:44 01/18/19 03:44 01/18/19 01/18/19 01/18/19 03:44 03:44 04:49 WBC 12.7 H RBC 4.41 Hgb 12.8 L Hct 38.3 MCV 87 MCH 29.1 MCHC 33.4 RDW 14.0 Plt Count 154 Carbonic Acid 1.06 HCO3/H2CO3 Ratio 24:1 ABG pH 7.48 H ABG pCO2 35.3 ABG pO2 88.0 ABG HCO3 25.9 H ABG O2 Saturation 97.3 ABG Base Excess 2.8 FiO2 30% Sodium 146.2 H Potassium 3.7 Chloride 115 H Carbon Dioxide 23 Anion Gap 8 BUN 11 Creatinine 0.65 Est GFR ( Amer) > 60 Glucose 108 Calcium 8.6 Assessment & Plan - Diagnosis (1) Acute respiratory failure Qualifiers: Respiratory failure complication: unspecified whether with hypoxia or hypercapnia Qualified Code(s): J96.00 - Acute respiratory failure, unspecified whether with hypoxia or hypercapnia Is this a current diagnosis for this admission?: Yes (2) Drug overdose, intentional Qualifiers: Encounter type: initial encounter Qualified Code(s): T50.902A - Poisoning by unspecified drugs, medicaments and biological substances, intentional self- harm, initial encounter Is this a current diagnosis for this admission?: Yes (3) Suicide attempt Is this a current diagnosis for this admission?: Yes (4) Bipolar disorder Qualifiers: Active/Remission status: currently active Is this a current diagnosis for this admission?: Yes (5) Alcohol abuse Is this a current diagnosis for this admission?: Yes - Time Time Spent with patient: 25-34 minutes Total Critical Time (Minutes): 33 Provider Note Provider Note: Assessment: Critically ill 38 yo man with acute respiratory failure, drug overdose, suicide attempt, bipolar disorder, marijuana use, alcohol abuse. Plan: 1. Respiratory: acute respiratory failure. Vent day 3. Continue full vent support.SBT when off sedation 2. CV: heart rate and BP acceptable. 3. Psych: drug overdose, suicide attempt, marijuana use, alcohol withdrawal bipolar disorder. Continue sedation with propofol. Contiue MVI, folic acid, thiamine. Psychiatry eval when pt is extubated 4. ID: remains febrile. Will start vanc and zosyn. Cultures pending 5. Nutrition: continue tube feeds 6. Endocrine: accuchecks, SSI 7. Prophylaxis: scds,lovenox Critical care time= 33 min, excluding procedures
[2019-01-18] MEDS ORDERED: PIPERACILLIN SODIUM/TAZOBACTAM 3.375 GM in NORMAL SALINE 100 ML IV SCH (08:00)
[2019-01-18] MEDS: THIAMINE HCL 100 MG TABLET PO SCH (10:06)
[2019-01-18] MEDS: FAMOTIDINE 20 MG TABLET PO SCH ×2 (10:06→21:27)
[2019-01-18] MEDS: FOLIC ACID 1 MG TABLET PO SCH (10:07)
[2019-01-18] MEDS: MULTIVITAMIN TABLET PO SCH (10:07)
[2019-01-18] MEDS: ENOXAPARIN SODIUM INJ 40 MG/0.4 ML DISP.SYRIN SUBCUT SCH (10:07)
[2019-01-18] MEDS: PIPERACILLIN SODIUM/TAZOBACTAM 3.375 GM in NORMAL SALINE 100 ML IV SCH ×3 (10:33→21:27)
[2019-01-18 11:18] LABS: A TYPE INFLUENZA AG POSITIVE (NEGATIVE); B INFLUENZA AG NEGATIVE (NEGATIVE)
[2019-01-18] MEDS: VANCOMYCIN HCL 1,250 MG in DEXTROSE 5%-WATER 250 ML IV SCH ×2 (13:07→21:27)
[2019-01-18] MEDS: OSELTAMIVIR PHOSPHATE 75 MG CAPSULE PO SCH ×2 (13:07→17:20)
[2019-01-18] MEDS ORDERED: RINGERS SOLUTION,LACTATED 1,000 ML IV ONE (16:46)
[2019-01-18] MEDS ORDERED: RINGERS SOLUTION,LACTATED 1,000 ML IV PRN (17:02)
[2019-01-18] MEDS ORDERED: RINGERS SOLUTION,LACTATED 500 ML IV ONE (17:15)
[2019-01-18] MEDS: ACETAMINOPHEN 325 MG TABLET NG PRN (22:51)
[2019-01-19] MEDS: PIPERACILLIN SODIUM/TAZOBACTAM 3.375 GM in NORMAL SALINE 100 ML IV SCH ×4 (02:09→21:18)
[2019-01-19] MEDS: RINGERS SOLUTION,LACTATED 1,000 ML IV PRN ×2 (02:09→14:25)
[2019-01-19] MEDS: PROPOFOL 1,000 MG/100 ML INFUS..BTL IV PRN ×3 (03:15→10:20)
[2019-01-19 04:16] LABS: HEMATOCRIT 35.4 % (37.9-51.0); MEAN CORPUSCULAR HEMOGLOBIN 29.4 pg (27.0-33.4); MEAN CORPUSCULAR HGB CONC 33.8 g/dL (32.0-36.0); MEAN CORPUSCULAR VOLUME 87 fl (80-97); PLATELET COUNT 152 10^3/uL (150-450); RED BLOOD COUNT 4.06 10^6/uL (4.35-5.55); RED CELL DISTRIBUTION WIDTH 15.2 % (11.5-14.0); WHITE BLOOD COUNT 8.1 10^3/uL (4.0-10.5)
[2019-01-19 04:29] LABS: ANION GAP 6 (5-19); BLOOD UREA NITROGEN 10 mg/dL (7-20); CALCIUM 8.1 mg/dL (8.4-10.2); CARBON DIOXIDE 24 mmol/L (22-30); CHLORIDE 114 mmol/L (98-107); GLUCOSE 93 mg/dL (75-110); POTASSIUM 3.6 mmol/L (3.6-5.0); TRIGLYCERIDES 81 mg/dL (<150)
[2019-01-19] MEDS: VANCOMYCIN HCL 1,250 MG in DEXTROSE 5%-WATER 250 ML IV SCH ×2 (05:38→14:21)
[2019-01-19] MEDS: INSULIN REG, HUMAN 100 UNIT/ML 3 ML VIAL (PYX) SUBCUT SCH ×3 (05:39→17:40)
[2019-01-19 06:09] LABS: ARTERIAL BLOOD BASE EXCESS -0.1 mmol/L; ARTERIAL BLOOD H2CO3 0.98 mmol/L (1.05-1.35); ARTERIAL BLOOD O2 SATURATION 97.9 % (94-98); ARTERIAL BLOOD PCO2 32.5 mmHg (35-45); ARTERIAL BLOOD PH 7.47 (7.35-7.45); ARTERIAL BLOOD PO2 98.2 mmHg (80-100)
[2019-01-19 06:13] LABS: ARTERIAL BLOOD FIO2 30%
--- NOTE | 2019-01-19 09:07 | PDOC PROGRESS REPORT ---
Subjective Progress Note for:: 01/19/19 Subjective:: Sedated on ventilator. Reason For Visit: ACUTE RESPIRATORY FAILURE, DRUG OVERDOSE, Physical Exam Vital Signs: Temp Pulse Resp BP Pulse Ox 99.7 F 91 22 H 129/69 H 98 01/19/19 08:00 01/19/19 08:20 01/19/19 08:20 01/19/19 08:00 01/19/19 08:20 Intake & Output 01/18/19 01/19/19 01/20/19 06:59 06:59 06:59 Intake Total 4122 80 Output Total 3140 100 Balance 982 -20 Weight 97.7 kg General appearance: PRESENT: no acute distress Head exam: PRESENT: atraumatic, normocephalic Additional Comments: Sedated Eye exam: PRESENT: conjunctiva pink, PERRLA. ABSENT: scleral icterus Ear exam: PRESENT: normal external ear exam Mouth exam: PRESENT: moist, tongue midline Respiratory exam: PRESENT: clear to auscultation sakshi, decreased breath sounds, rhonchi Cardiovascular exam: PRESENT: RRR. ABSENT: diastolic murmur, rubs, systolic murmur Vascular exam: PRESENT: normal capillary refill GI/Abdominal exam: PRESENT: normal bowel sounds, soft. ABSENT: distended, guarding, mass, organolmegaly, rebound, tenderness Rectal exam: PRESENT: deferred Gentrourinary exam: PRESENT: indwelling catheter Extremities exam: PRESENT: full ROM Musculoskeletal exam: PRESENT: normal inspection Neurological exam: PRESENT: altered Additional comments: Sedated Skin exam: PRESENT: dry, intact, warm. ABSENT: cyanosis, rash Results Laboratory Results: 01/19/19 03:51 01/19/19 03:51 01/19/19 01/19/19 01/19/19 03:51 03:51 05:55 WBC 8.1 RBC 4.06 L Hgb 12.0 L Hct 35.4 L MCV 87 MCH 29.4 MCHC 33.8 RDW 15.2 H Plt Count 152 Carbonic Acid 0.98 L HCO3/H2CO3 Ratio 23:1 ABG pH 7.47 H ABG pCO2 32.5 L ABG pO2 98.2 ABG HCO3 23.0 ABG O2 Saturation 97.9 ABG Base Excess -0.1 FiO2 30% Sodium 144.0 Potassium 3.6 Chloride 114 H Carbon Dioxide 24 Anion Gap 6 BUN 10 Creatinine 0.71 Est GFR ( Amer) > 60 Glucose 93 Calcium 8.1 L Triglycerides 81 Assessment & Plan - Diagnosis (1) Acute respiratory failure Qualifiers: Respiratory failure complication: unspecified whether with hypoxia or hypercapnia Qualified Code(s): J96.00 - Acute respiratory failure, unspecified whether with hypoxia or hypercapnia Is this a current diagnosis for this admission?: Yes Plan: Largely due to need for sedation and OD. Weaning begun (2) Bipolar disorder Qualifiers: Active/Remission status: currently active Is this a current diagnosis for this admission?: Yes Plan: Assess psychiatric needs when extubated and more lucid. (3) Drug overdose, intentional Qualifiers: Encounter type: initial encounter Qualified Code(s): T50.902A - Poisoning by unspecified drugs, medicaments and biological substances, intentional self- harm, initial encounter Is this a current diagnosis for this admission?: Yes Plan: Again will assess the severity and seriousness of this possible suicide attempt when more appropriate. - Time Time Spent with patient: 35 or more minutes Total Critical Time (Minutes): 35 Level of Care: ICU Medications reviewed and adjusted accordingly: Yes Anticipated discharge: Home Within: within 72 hours - Inpatient Certification Based on my medical assessment, after consideration of the patient's comorbidities, presenting symptoms, or acuity I expect that the services needed warrant INPATIENT care.: Yes I certify that my determination is in accordance with my understanding of Medicare's requirements for reasonable and necessary INPATIENT services [42 CFR 412.3e].: Yes Medical Necessity: Failure to Improve With Outpatient Therapy, Significant Comorbidiites Make Outpatient Treatment Too Risky, Need Close Monitoring Due to Risk of Patient Decompensation, Need For IV Fluids, Need For Continuous Telemetr y Monitoring, Need for Nebulizer Therapy and Monitoring of Response, Need for Neurological Checks, Risk of Complication if Not Cared For in Hospital
[2019-01-19] MEDS: FOLIC ACID 1 MG TABLET PO SCH (10:01)
[2019-01-19] MEDS: OSELTAMIVIR PHOSPHATE 75 MG CAPSULE PO SCH ×2 (10:01→17:35)
[2019-01-19] MEDS: ENOXAPARIN SODIUM INJ 40 MG/0.4 ML DISP.SYRIN SUBCUT SCH (10:01)
[2019-01-19] MEDS: FAMOTIDINE 20 MG TABLET PO SCH ×2 (10:01→21:18)
[2019-01-19] MEDS: THIAMINE HCL 100 MG TABLET PO SCH (10:01)
[2019-01-19] MEDS: MULTIVITAMIN TABLET PO SCH (10:01)
--- NOTE | 2019-01-19 10:56 | RADIOLOGY REPORT (SQ) ---
EXAM DESCRIPTION: CHEST SINGLE VIEW COMPLETED DATE/TIME: 01/19/2019 6:54 am REASON FOR STUDY: resp failure COMPARISON: 01/17/2019 NUMBER OF VIEWS: One view. TECHNIQUE: Single frontal radiographic image of the chest acquired. LIMITATIONS: None. FINDINGS: LUNGS AND PLEURA: Stable appearance. MEDIASTINUM AND HILAR STRUCTURES: Stable heart size and mediastinal structures. HEART AND VASCULAR STRUCTURES: Stable appearance. SUPPORT DEVICES: Appropriate location without change. BONES: No acute findings. OTHER: No other significant finding. IMPRESSION: STABLE APPEARANCE OF THE CHEST. SUPPORT DEVICES UNCHANGED. TECHNICAL DOCUMENTATION: JOB ID: [id number] [employer]- All Rights Reserved Reading location - IP/workstation name: [email or web address]
[2019-01-19 14:50] LABS: VANCOMYCIN,TROUGH 10.3 ug/mL (5.0-20.0)
[2019-01-19] MEDS: ACETAMINOPHEN 325 MG TABLET NG PRN (16:09)
[2019-01-20] MEDS: INSULIN REG, HUMAN 100 UNIT/ML 3 ML VIAL (PYX) SUBCUT SCH ×4 (01:14→17:41)
[2019-01-20] MEDS: RINGERS SOLUTION,LACTATED 1,000 ML IV PRN (02:09)
[2019-01-20] MEDS: PIPERACILLIN SODIUM/TAZOBACTAM 3.375 GM in NORMAL SALINE 100 ML IV SCH (02:10)
[2019-01-20] MEDS: ACETAMINOPHEN 325 MG TABLET NG PRN ×2 (05:03→23:08)
--- NOTE | 2019-01-20 08:15 | RADIOLOGY REPORT (SQ) ---
EXAM DESCRIPTION: CHEST SINGLE VIEW COMPLETED DATE/TIME: 01/20/2019 6:16 am REASON FOR STUDY: resp failure COMPARISON: 01/19/2019 EXAM PARAMETERS: NUMBER OF VIEWS: One view. TECHNIQUE: Single frontal radiographic view of the chest acquired. RADIATION DOSE: NA LIMITATIONS: None. FINDINGS: LUNGS AND PLEURA: Stable chest with mild left perihilar and retrocardiac opacities. No ne w airspace disease. No new effusion. No pneumothorax. MEDIASTINUM AND HILAR STRUCTURES: No masses. Contour normal. HEART AND VASCULAR STRUCTURES: Normal heart size. BONES: No acute findings. HARDWARE: Extubation with removal of the enteric tube. OTHER: No other significant finding. IMPRESSION: Extubation with removal of the enteric tube. Stable mild left perihilar and retrocardiac opacities. No evidence of new cardiothoracic process. TECHNICAL DOCUMENTATION: JOB ID: [id number] [employer]- All Rights Reserved Reading location - IP/workstation name: [email or web address]
--- NOTE | 2019-01-20 08:55 | PDOC PROGRESS REPORT ---
Subjective Progress Note for:: 01/20/19 Subjective:: More awake and interactive this AM. Reason For Visit: ACUTE RESPIRATORY FAILURE, DRUG OVERDOSE, Physical Exam Vital Signs: Temp Pulse Resp BP Pulse Ox 98.6 F 93 24 H 149/79 H 97 01/20/19 06:00 01/20/19 07:00 01/20/19 06:00 01/20/19 05:42 01/20/19 06:00 Intake & Output 01/19/19 01/20/19 01/21/19 06:59 06:59 06:59 Intake Total 4122 3041 Output Total 3140 3550 Balance 982 -509 Weight 97.7 kg 98.1 kg General appearance: PRESENT: no acute distress, well-developed, well-nourished Head exam: PRESENT: atraumatic, normocephalic Eye exam: PRESENT: conjunctiva pink, EOMI, PERRLA. ABSENT: scleral icterus Ear exam: PRESENT: normal external ear exam Mouth exam: PRESENT: moist, tongue midline Respiratory exam: PRESENT: clear to auscultation sakshi, decreased breath sounds, unlabored Cardiovascular exam: PRESENT: RRR. ABSENT: diastolic murmur, rubs, systolic murmur Vascular exam: PRESENT: normal capillary refill GI/Abdominal exam: PRESENT: normal bowel sounds, soft. ABSENT: distended, guarding, mass, organolmegaly, rebound, tenderness Rectal exam: PRESENT: deferred Gentrourinary exam: PRESENT: indwelling catheter Additional comments: To be discontinued today. Extremities exam: PRESENT: full ROM Musculoskeletal exam: PRESENT: full ROM, normal inspection Neurological exam: PRESENT: alert, awake Skin exam: PRESENT: dry, intact, warm. ABSENT: cyanosis, rash Results Laboratory Results: 01/19/19 03:51 01/19/19 03:51 01/17/19 10:54 Tracheal Aspirate Gram Stain - Final 01/17/19 10:54 Tracheal Aspirate Sputum Culture - Final Staphylococcus Aureus Normal Divya Impressions: Chest X-Ray 01/20/19 06:00 IMPRESSION: Extubation with removal of the enteric tube. Stable mild left perihilar and retrocardiac opacities. No evidence of new cardiothoracic process. Assessment & Plan - Diagnosis (1) Acute respiratory failure Qualifiers: Respiratory failure complication: unspecified whether with hypoxia or hyperc apnia Qualified Code(s): J96.00 - Acute respiratory failure, unspecified whether with hypoxia or hypercapnia Is this a current diagnosis for this admission?: Yes Plan: Resolved. Extubated yesterday. Doing well. (2) Bipolar disorder Qualifiers: Active/Remission status: currently active Is this a current diagnosis for this admission?: Yes Plan: Need psychiatry input for further planning and medication intervention. (3) Drug overdose, intentional Qualifiers: Encounter type: initial encounter Qualified Code(s): T50.902A - Poisoning by unspecified drugs, medicaments and biological substances, intentional self- harm, initial encounter Is this a current diagnosis for this admission?: Yes Plan: This is almost totally resolved. However even his father admits this was an impulsive act and he may repeat. IVVC in place. He does not need an ICU level of care. - Time Time Spent with patient: 25-34 minutes Total Critical Time (Minutes): 30 Level of Care: MEDICAL Medications reviewed and adjusted accordingly: Yes Anticipated discharge: Home Within: within 72 hours - Inpatient Certification Based on my medical assessment, after consideration of the patient's comorbidities, presenting symptoms, or acuity I expect that the services needed warrant INPATIENT care.: Yes I certify that my determination is in accordance with my understanding of Medicare's requirements for reasonable and necessary INPATIENT services [42 CFR 412.3e].: Yes Medical Necessity: Failure to Improve With Outpatient Therapy, Significant Comorbidiites Make Outpatient Treatment Too Risky, Need Close Monitoring Due to Risk of Patient Decompensation
[2019-01-20] MEDS: FOLIC ACID 1 MG TABLET PO SCH (09:49)
[2019-01-20] MEDS: MULTIVITAMIN TABLET PO SCH (09:49)
[2019-01-20] MEDS: THIAMINE HCL 100 MG TABLET PO SCH (09:49)
[2019-01-20] MEDS: OSELTAMIVIR PHOSPHATE 75 MG CAPSULE PO SCH ×2 (09:49→17:41)
[2019-01-20] MEDS: ENOXAPARIN SODIUM INJ 40 MG/0.4 ML DISP.SYRIN SUBCUT SCH (09:50)
[2019-01-20] MEDS: AMOXICILLIN TR/POT CLAVULANATE 500-125 MG TAB PO SCH ×2 (13:32→22:52)
[2019-01-21] MEDS: AMOXICILLIN TR/POT CLAVULANATE 500-125 MG TAB PO SCH ×3 (05:54→22:20)
[2019-01-21] MEDS: INSULIN REG, HUMAN 100 UNIT/ML 3 ML VIAL (PYX) SUBCUT SCH ×4 (05:55→17:51)
--- NOTE | 2019-01-21 09:20 | PDOC PROGRESS REPORT ---
Subjective Progress Note for:: 01/21/19 Subjective:: Much more lucid today but still does not fully grasp the significance of what happened. Understands the meaning of IVC. Wants to go home. Reason For Visit: ACUTE RESPIRATORY FAILURE, DRUG OVERDOSE, now resolved. Still IVC'd. Medically ready for discharge. Need clear psych plan. To remain in hospital pending this. Physical Exam Vital Signs: Temp Pulse Resp BP Pulse Ox 99.9 F 94 14 152/94 H 98 01/20/19 22:00 01/20/19 22:00 01/20/19 22:00 01/20/19 22:00 01/20/19 22:00 Intake & Output 01/20/19 01/21/19 01/22/19 06:59 06:59 06:59 Intake Total 3041 240 Output Total 3550 1300 Balance -509 -1060 Weight 98.1 kg 96.3 kg General appearance: PRESENT: no acute distress, well-developed, well-nourished Head exam: PRESENT: atraumatic, normocephalic Eye exam: PRESENT: conjunctiva pink, EOMI, PERRLA. ABSENT: scleral icterus Ear exam: PRESENT: normal external ear exam Mouth exam: PRESENT: moist, tongue midline Neck exam: PRESENT: full ROM. ABSENT: carotid bruit, JVD, lymphadenopathy, thyromegaly Respiratory exam: PRESENT: clear to auscultation sakshi, unlabored Cardiovascular exam: PRESENT: RRR. ABSENT: diastolic murmur, rubs, systolic murmur GI/Abdominal exam: PRESENT: normal bowel sounds, soft. ABSENT: distended, guarding, mass, organolmegaly, rebound, tenderness Rectal exam: PRESENT: deferred Extremities exam: PRESENT: full ROM Musculoskeletal exam: PRESENT: full ROM, normal inspection Neurological exam: PRESENT: alert, awake, oriented to person, oriented to place, oriented to time, oriented to situation, CN II-XII grossly intact. ABSENT: motor sensory deficit Psychiatric exam: PRESENT: appropriate affect Skin exam: PRESENT: normal color Results Laboratory Results: 01/19/19 03:51 01/19/19 03:51 Impressions: Chest X-Ray 01/20/19 06:00 IMPRESSION: Extubation with removal of the enteric tube. Stable mild left perihilar and retrocardiac opacities. No evidence of new cardiothoracic process. Assessment & Plan - Diagnosis (1) Acute respiratory failure Qualifiers: Respiratory failure complication: unspecified whether with hypoxia or hypercapnia Qualified Code(s): J96.00 - Acute respiratory failure, unspecified whether with hypoxia or hypercapnia Is this a current diagnosis for this admission?: Yes Plan: Fully resolved (2) Bipolar disorder Qualifiers: Active/Remission status: currently active Is this a current diagnosis for this admission?: Yes Plan: Needs psychiatric input and followup. Likely needs medication. Complains of mind 'always racing'. Insomnia as well. (3) Drug overdose, intentional Qualifiers: Encounter type: initial encounter Qualified Code(s): T50.902A - Poisoning by unspecified drugs, medicaments and biological substances, intentional self- harm, initial encounter Is this a current diagnosis for this admission?: Yes Plan: Is not actively suicidal. Is forward thinking about daughter but admits this was impulsive and tends to minimize. Spoke in presence of father. (4) Acute Crohn's disease Qualifiers: Digestive disease complication type: with rectal bleeding Qualified Code(s): K50.911 - Crohn's disease, unspecified, with rectal bleeding Is this a current diagnosis for this admission?: Yes Plan: Claims to be rectally bleeding, normal for him. Needs to be addressed as out patient. - Time Time Spent with patient: 25-34 minutes Total Critical Time (Minutes): 20 Level of Care: MEDICAL Medications reviewed and adjusted accordingly: Yes Anticipated discharge: Home Within: Other - When safe plan is formulated and IVC is lifted. - Inpatient Certification Based on my medical assessment, after consideration of the patient's comorbidities, presenting symptoms, or acuity I expect that the services needed warrant INPATIENT care.: Yes I certify that my determination is in accordance with my understanding of Medicare's requirements for reasonable and necessary INPATIENT services [42 CFR 412.3e].: Yes Medical Necessity: Failure to Improve With Outpatient Therapy, Need Close Monitoring Due to Risk of Patient Decompensation, Risk of Complication if Not Cared For in Hospital
--- NOTE | 2019-01-21 10:07 | Progress Note ---
Provider Note Provider Note: Pt got out f bed. Bathed with help. Is lucid, oriented. He is ready for medical discharge. Need psych input as he is still IVC'd and needs a safe discharge from the hospital.
[2019-01-21] MEDS: MULTIVITAMIN TABLET PO SCH (11:26)
[2019-01-21] MEDS: FOLIC ACID 1 MG TABLET PO SCH (11:26)
[2019-01-21] MEDS: OSELTAMIVIR PHOSPHATE 75 MG CAPSULE PO SCH ×2 (11:26→17:47)
[2019-01-21] MEDS: THIAMINE HCL 100 MG TABLET PO SCH (11:26)
[2019-01-21] MEDS: ENOXAPARIN SODIUM INJ 40 MG/0.4 ML DISP.SYRIN SUBCUT SCH (11:30)
--- NOTE | 2019-01-21 17:20 | PSYCHOLOGICAL NOTE ---
Psych Note - Psych Note Date seen by psych provider: 01/21/19 Time seen by psych provider: 01:33 Psych Note: Patient has been accepted to [facility] and transportation has been requested. [facility]'s department reports they will be able to transport first thing in the morning. [facility] confirm they will hold the bed for the patient.
[2019-01-21] MEDS ORDERED: DIPHENHYDRAMINE HCL 25 MG CAPSULE PO ONE (22:00)
[2019-01-22] MEDS: INSULIN REG, HUMAN 100 UNIT/ML 3 ML VIAL (PYX) SUBCUT SCH ×2 (00:53→06:21)
[2019-01-22 07:30] VITALS: BP 145/98
[2019-01-22] MEDS: AMOXICILLIN TR/POT CLAVULANATE 500-125 MG TAB PO SCH (07:54)
[2019-01-22] MEDS ORDERED: DIPHENOXYLATE HCL/ATROP SULF 2.5-0.025 MG TABLET PO ONE (08:23)
--- NOTE | 2019-01-22 08:23 | PDOC DISCHARGE SUMMARY ---
Impression - Admit/DC Date/PCP Admission Date/Primary Care Provider: 01/16/19 12:16 Discharge Date: 01/22/19 - Discharge Diagnosis (1) Acute respiratory failure Is this a current diagnosis for this admission?: No (2) Bipolar disorder Is this a current diagnosis for this admission?: Yes (3) Drug overdose, intentional Is this a current diagnosis for this admission?: Yes (4) Acute Crohn's disease Is this a current diagnosis for this admission?: Yes - Assessment Summary: This patient is a 38 yo man with a history of bipolar disease who after a family argument with his fiance over their daughter he impulsively took 'a handful of pills' unknown what in an effort to kill himself. He states it was impulsive and has no desire to do it again but deflects some direct questions and openly state "I cant go back to longterm". He violated an order of protection at the time. He was obtunded and not protecting his airway and thus was intubated. He is now, obviously extubated, was a bit delirious from the OD and sedation. Is no totally lucid and more focused on past perceived personal hurts than forward looking. The fear is that he is still a suicide danger and is still involuntarily committed. His father backs this up as well. He is ready for transfer to a facility that can help his psychiatric condition. He will be sent to [facility] under the service of Dr. Joselyn Cartwright. - Additional Information Resuscitation Status: Full Code Discharge Diet: Regular Discharge Activity: Activity As Tolerated Home Medications: Unobtainable 01/16/19 History of Present Illiness History of Present Illness: JULIO PALAFOX is a 38 year old male Hospital Course Hospital Course: Uneventful extubation and he has been downgraded from an ICU status for 2 days. His Chron's disease is active in that it is bleeding some. This can be addressed when he is released. Physical Exam Vital Signs: Temp Pulse Resp BP Pulse Ox 98.9 F 104 H 15 145/98 H 98 01/22/19 07:29 01/22/19 07:29 01/22/19 07:29 01/22/19 07:29 01/22/19 07:29 Intake & Output 01/21/19 01/22/19 01/23/19 06:59 06:59 06:59 Intake Total 240 300 Output Total 1300 1125 Balance -1060 -825 Weight 96.3 kg General appearance: PRESENT: no acute distress, well-developed, well-nourished Head exam: PRESENT: atraumatic, normocephalic Eye exam: PRESENT: conjunctiva pink, EOMI, PERRLA. ABSENT: scleral icterus Ear exam: PRESENT: normal external ear exam Mouth exam: PRESENT: moist, tongue midline Respiratory exam: PRESENT: clear to auscultation sakshi. ABSENT: rales, rhonchi, wheezes Cardiovascular exam: PRESENT: RRR. ABSENT: diastolic murmur, rubs, systolic murmur Vascular exam: PRESENT: normal capillary refill GI/Abdominal exam: PRESENT: normal bowel sounds, soft. ABSENT: distended, guarding, mass, organolmegaly, rebound, tenderness Rectal exam: PRESENT: deferred, other - No diarhea but some rectal bleeding. Extremities exam: PRESENT: full ROM. ABSENT: calf tenderness, clubbing, pedal edema Musculoskeletal exam: PRESENT: ambulatory, full ROM, normal inspection Neurological exam: PRESENT: alert, awake, oriented to person, oriented to place, oriented to time, oriented to situation, CN II-XII grossly intact. ABSENT: motor sensory deficit Psychiatric exam: PRESENT: anxious, appropriate affect Skin exam: PRESENT: dry, intact, warm. ABSENT: cyanosis, rash Results Laboratory Results: WBC 8.1 10^3/uL (4.0-10.5) 01/19/19 03:51 RBC 4.06 10^6/uL (4.35-5.55) L 01/19/19 03:51 Hgb 12.0 g/dL (13.5-17.0) L 01/19/19 03:51 Hct 35.4 % (37.9-51.0) L 01/19/19 03:51 MCV 87 fl (80-97) 01/19/19 03:51 MCH 29.4 pg (27.0-33.4) 01/19/19 03:51 MCHC 33.8 g/dL (32.0-36.0) 01/19/19 03:51 RDW 15.2 % (11.5-14.0) H 01/19/19 03:51 Plt Count 152 10^3/uL (150-450) 01/19/19 03:51 Lymph % (Auto) 25.9 % (13-45) 01/16/19 10:31 [place] % (Auto) 5.0 % (3-13) 01/16/19 10:31 Eos % (Auto) 1.6 % (0-6) 01/16/19 10:31 Baso % (Auto) 0.6 % (0-2) 01/16/19 10:31 Absolute Neuts (auto) 5.1 10^3/uL (1.7-8.2) 01/16/19 10:31 Absolute Lymphs (auto) 2.0 10^3/uL (0.5-4.7) 01/16/19 10:31 Absolute Monos (auto) 0.4 10^3/uL (0.1-1.4) 01/16/19 10:31 Absolute Eos (auto) 0.1 10^3/uL (0.0-0.6) 01/16/19 10:31 Absolute Basos (auto) 0.0 10^3/uL (0.0-0.2) 01/16/19 10:31 Seg Neutrophils % 66.9 % (42-78) 01/16/19 10:31 PT 12.9 SEC (11.4-15.4) 01/16/19 10:31 INR 0.97 01/16/19 10:31 Carbonic Acid 0.98 mmol/L (1.05-1.35) L 01/19/19 05:55 HCO3/H2CO3 Ratio 23:1 01/19/19 05:55 ABG pH 7.47 (7.35-7.45) H 01/19/19 05:55 ABG pCO2 32.5 mmHg (35-45) L 01/19/19 05:55 ABG pO2 98.2 mmHg (80-100) 01/19/19 05:55 ABG HCO3 23.0 mmol/L (20-24) 01/19/19 05:55 ABG Total CO2 24.0 mmol/L (23-27) 01/19/19 05:55 ABG O2 Saturation 97.9 % (94-98) 01/19/19 05:55 ABG Base Excess -0.1 mmol/L 01/19/19 05:55 FiO2 30% 01/19/19 05:55 Sodium 144.0 mmol/L (137-145) 01/19/19 03:51 Potassium 3.6 mmol/L (3.6-5.0) 01/19/19 03:51 Chloride 114 mmol/L (98-107) H 01/19/19 03:51 Carbon Dioxide 24 mmol/L (22-30) 01/19/19 03:51 Anion Gap 6 (5-19) 01/19/19 03:51 BUN 10 mg/dL (7-20) 01/19/19 03:51 Creatinine 0.71 mg/dL (0.52-1.25) 01/19/19 03:51 Est GFR ( Amer) > 60 (>60) 01/19/19 03:51 Est GFR (MDRD) Non-Af > 60 (>60) 01/19/19 03:51 Glucose 93 mg/dL (75-110) 01/19/19 03:51 POC Glucose 112 mg/dL (70-110) H 01/21/19 05:52 Lactic Acid 2.0 mmol/L (0.7-2.1) 01/16/19 12:52 Calcium 8.1 mg/dL (8.4-10.2) L 01/19/19 03:51 Total Bilirubin 0.2 mg/dL (0.2-1.3) 01/16/19 10:31 Direct Bilirubin 0.0 mg/dL (0.0-0.4) 01/16/19 10:31 Neonat Total Bilirubin Not Reportable 01/16/19 10:31 Neonat Direct Bilirubin Not Reportable 01/16/19 10:31 Neonat Indirect Bili Not Reportable 01/16/19 10:31 AST 14 U/L (17-59) L 01/16/19 10:31 ALT 8 U/L (<50) 01/16/19 10:31 Alkaline Phosphatase 69 U/L (38-126) 01/16/19 10:31 Total Protein 6.3 g/dL (6.3-8.2) 01/16/19 10:31 Albumin 3.6 g/dL (3.5-5.0) 01/16/19 10:31 Triglycerides 81 mg/dL (<150) 01/19/19 03:51 Urine Color STRAW 01/16/19 10:52 Urine Appearance CLEAR 01/16/19 10:52 Urine pH 6.0 (5.0-9.0) 01/16/19 10:52 Ur Specific [place] 1.008 01/16/19 10:52 Urine Protein NEGATIVE mg/dL (NEGATIVE) 01/16/19 10:52 Urine Glucose (UA) NEGATIVE mg/dL (NEGATIVE) 01/16/19 10:52 Urine Ketones NEGATIVE mg/dL (NEGATIVE) 01/16/19 10:52 Urine Blood NEGATIVE (NEGATIVE) 01/16/19 10:52 Urine Nitrite (Reflex) NEGATIVE (NEGATIVE) 01/16/19 10:52 Urine Bilirubin NEGATIVE (NEGATIVE) 01/16/19 10:52 Urine Urobilinogen NEGATIVE mg/dL (<2.0) 01/16/19 10:52 Leukocyte Esterase Rfl NEGATIVE (NEGATIVE) 01/16/19 10:52 Urine WBC (Reflex) < 1 /HPF 01/16/19 10:52 Urine Mucus (Auto) RARE /LPF 01/16/19 10:52 Urine Ascorbic Acid NEGATIVE (NEGATIVE) 01/16/19 10:52 Time Trough Drawn 1405 01/19/19 14:05 Vancomycin Trough 10.3 ug/mL (5.0-20.0) 01/19/19 14:05 Urine Opiates Screen NEGATIVE 01/16/19 10:52 Urine Methadone Screen NEGATIVE 01/16/19 10:52 Acetaminophen < 10 ug/mL (10-30) L 01/16/19 10:31 Ur Barbiturates Screen NEGATIVE 01/16/19 10:52 Valproic Acid 43.7 ug/mL (50.0-120.0) L 01/16/19 12:52 Ur Phencyclidine Scrn NEGATIVE 01/16/19 10:52 Ur Amphetamines Screen NEGATIVE 01/16/19 10:52 U Benzodiazepines Scrn NEGATIVE 01/16/19 10:52 Urine Cocaine Screen NEGATIVE 01/16/19 10:52 U Marijuana (THC) Screen UNCONFIRMED POSITIVE 01/16/19 10:52 Serum Alcohol 216 mg/dL (NONE DETECTED) 01/16/19 10:31 Influenza A (Rapid) POSITIVE (NEGATIVE) 01/18/19 10:52 Influenza B (Rapid) NEGATIVE (NEGATIVE) 01/18/19 10:52 Impressions: Chest X-Ray 01/16/19 10:48 IMPRESSION: Good position of endotracheal and nasogastric tubes. No pneumothorax. Chest X-Ray 01/19/19 06:00 IMPRESSION: STABLE APPEARANCE OF THE CHEST. SUPPORT DEVICES UNCHANGED. Chest X-Ray 01/20/19 06:00 IMPRESSION: Extubation with removal of the enteric tube. Stable mild left perihilar and retrocardiac opacities. No evidence of new cardiothoracic process. Plan Health Concerns: Psychiatric stability. emt intermediate goal of addressing Chron's disease which is log standing. Goals: Psychiatric stability to deal with life stressors in a more stable and healthy manner. Lifting of IVC when safe. Stroke Is this a Stroke Patient?: No Acute Heart Failure - Is this a Heart Failure Patient?: No
[2019-01-22] MEDS ORDERED: DIPHENOXYLATE HCL/ATROP SULF 2.5-0.025 MG TABLET PO PRN (08:24)
[2019-01-22] MEDS: FOLIC ACID 1 MG TABLET PO SCH (09:32)
[2019-01-22] MEDS: THIAMINE HCL 100 MG TABLET PO SCH (09:32)
[2019-01-22] MEDS: OSELTAMIVIR PHOSPHATE 75 MG CAPSULE PO SCH (09:33)
[2019-01-22] MEDS ORDERED: INFLUENZA QUAD (6MOS+) 2019-20 VAC 0.5 ML SYR IM ONE (10:17)
== END 2019-01-22 10:50 | DRG 917 ==
LOC: ER 10:30 → EH 12:16 → ICU 13:33
PROVIDERS: ADMIT Internal Medicine; ATTEND Internal Medicine
PROC: 5A1945Z Respiratory Ventilation, 24-96 Consecutive Hours (ICD-10-PCS; principal; 2019-01-16)
PROC: 0BH17EZ Insertion of Endotracheal Airway into Trachea, Via Natural or Artificial Opening (ICD-10-PCS; 2019-01-16)
PROC: 3E02340 Introduction of Influenza Vaccine into Muscle, Percutaneous Approach (ICD-10-PCS; 2019-01-22)
DX: T50.902A Poisoning by unspecified drugs, medicaments and biological substances, intentional self-harm, initial encounter (principal); J96.00 Acute respiratory failure, unspecified whether with hypoxia or hypercapnia; K50.90 Crohn's disease, unspecified, without complications; F31.9 Bipolar disorder, unspecified; F10.10 Alcohol abuse, uncomplicated; F12.90 Cannabis use, unspecified, uncomplicated; Z23 Encounter for immunization
CPT/HCPCS: 36415; 51702; 71045; 80048; 80053; 80164; 80202; 80307; 81001; 82803; 82962; 83605; 84478; 85025; 85027; 85610; 87040; 87070; 87077; 87186; 87205; 87804; 90686; 93005; 93010; 94002; 94003; 94150; 96360; 99231; 99239; 99285; 99291; J0330; J0360; J0696; J1650; J2543; J2704; J3010; J3370; J3490; J7030; J7050; J7060; J7120